=== PATIENT | male | born 1930 | race Caucasian/White ===

== ENCOUNTER → 2017-05-06 | Outpatient (CLI) | payer MEDICARE, OTHER ==
[~2017-05-06] MED LIST: ACETYLCYSTEINE 20% 30 ML VIAL As Ordered; PROPOFOL 200 MG/20 ML VIAL As Ordered
== END ==
LOC: M RAD 13:49
DX: M86.9 Osteomyelitis, unspecified (principal)
CPT/HCPCS: 73718